=== PATIENT | female | born 1955 | race Caucasian/White ===

== ENCOUNTER 2021-12-24 13:44 | Emergency (ER) | payer MEDICARE ==
[2021-12-24 15:26] LABS: ALT (SGPT) 18 U/L (8-55); AST (SGOT) 23 U/L (5-34); Alkaline Phosphatase 44 U/L (40-110); Anion Gap 16 mmol/L (10-20); BUN (Urea Nitrogen) 11 mg/dL (9.8-20.1); Bilirubin, Total 0.4 mg/dL (0.2-1.2); Calc. Creatinine Clearance 0 mL/min (70-130); Calcium 9.3 mg/dL (7.8-10.44); Carbon Dioxide 25 mmol/L (23-31); Chloride 100 mmol/L (98-107); Globulin 3.1 g/dL (2.4-3.5); Glucose 95 mg/dL (80-115); Lipase 30 U/L (8-78); Potassium 3.7 mmol/L (3.5-5.1); Protein, Total 7.1 g/dL (5.8-8.1); Sodium 137 mmol/L (136-145)
[2021-12-24 16:09] LABS: Band 3 % (5-11); Hemoglobin 14.8 g/dL (12.0-16.0); Lymphocytes 22 % (21-51); MDiff Complete? YES; Mean Corpuscular HGB CONC 31.7 g/dL (32.0-36.0); Mean Corpuscular Hemoglobin 31.2 pg (27.0-31.0); Mean Corpuscular Volume 98.6 fL (78.0-98.0); Mean Platelet Volume 6.3 fL (7.4-10.4); Monocytes 8 % (0-10); Neutrophil 67 % (42-75); Platelet Count 214 thou/uL (130-400); Platelet Morphology Comment Appears Adequate; RBC Distribution Width 11.1 % (11.5-14.5); Red Blood Cell (RBC) Count 4.75 mill/uL (4.20-5.40); White Blood Cell (WBC) Count 3.8 thou/uL (4.8-10.8)
[2021-12-24 16:42] LABS: Clarity Clear (Clear); Leukocyte Negative (Negative); Nitrite Negative (Negative); Protein, Urine (Dipstick) Negative (Neg-Trace); Specific Gravity, Urine 1.015 (1.005-1.030)
[2021-12-24 16:43] LABS: Bilirubin Negative (Negative); Blood, Urine Moderate (Negative); Glucose, Urine (Dipstick) Negative (Negative); Ketone, Urine Negative (Negative); Urobilinogen 0.2 mg/dL (Less than 2)
[2021-12-24 16:46] LABS: Bacteria/HPF Rare-Few HPF (None Seen); Mucous/LPF Rare LPF (<2+); RBC/HPF 0-3 HPF (0-3); Squamous Epithelial 0-3 HPF (0-3); WBC/HPF 0-3 HPF (0-3)
== END 2021-12-24 17:43 | disposition home or self-care (01) ==
LOC: NAV ERS 13:44
DX: R19.7 Diarrhea, unspecified (principal); K13.70 Unspecified lesions of oral mucosa
CPT/HCPCS: 80053; 81003; 81015; 83690; 85025; 99284

== ENCOUNTER 2023-07-08 07:05 | Emergency (ER) | payer MEDICARE | END 2023-07-08 08:04 | disposition home or self-care (01) | LOC: NAV ERS 07:05 | DX: B34.9 Viral infection, unspecified (principal); J02.9 Acute pharyngitis, unspecified; R09.81 Nasal congestion | CPT/HCPCS: 71046 ==